=== PATIENT | female | born 1990 | race Caucasian/White ===

== ENCOUNTER 2018-08-23 14:41 | Emergency (ER) | payer SELFPAY ==
[2018-08-23 15:33] LABS: Urine Blood 2+ (NEG); Urine Glucose NEGATIVE (NEG); Urine Protein TRACE (NEG); Urine pH 7.5 (5.0-7.0)
[2018-08-23] MEDS ORDERED: KETOROLAC 30 MG/ML INJ ONE (15:33)
[2018-08-23] MEDS ORDERED: DIAZEPAM 10 MG/2 ML INJ SYRINGE ONE (15:40)
--- NOTE | 2018-08-23 15:43 | ER ---
Nurse's Notes [facility] Name: Elena Chinchilla Age: 28 yrs Sex: Female : 1990 Arrival Date: 08/23/2018 Time: 14:45 Bed 28 Private MD: Diagnosis: Torticollis Presentation: 08/23 15:27 Presenting complaint: Patient states: Headache and neck pain that worsens with bright sg light, pt reports nausea at this time. Transition of care: patient was not received from another setting of care. Onset of symptoms was August 23, 2018. Risk Assessment: Do you want to hurt yourself or someone else? Patient reports no desire to harm self or others. Initial Sepsis Screen: Does the patient meet any 2 criteria? No. Patient's initial sepsis screen is negative. Does the patient have a suspected source of infection? No. Patient's initial sepsis screen is negative. Care prior to arrival: None. 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 - Social history:: Smoking status: unknown. - Ebola Screening: : No symptoms or risks identified at this time. Screenin:42 Abuse screen: Denies threats or abuse. Denies injuries from another. Nutritional mg2 screening: No deficits noted. Tuberculosis screening: Fall Risk None identified. Assessment: 15:38 General: Appears in no apparent distress. comfortable, Behavior is calm, cooperative. mg2 Pain: Complains of pain in neck Pain does not radiate. Neuro: Level of Consciousness is awake, alert, obeys commands, Oriented to person, place, time, situation. Cardiovascular: No deficits noted. Respiratory: Airway is patent Respiratory effort is even, unlabored, Respiratory pattern is regular, symmetrical. GI: No deficits noted. : No deficits noted. EENT: No deficits noted. Derm: Skin is intact, is healthy with good turgor, Skin is pink, warm \T\ dry. normal. Musculoskeletal: Reports pain in neck since this morning. Pain is 8 out of 10 on a pain scale. Vital Signs: 15:06 BP 115 / 88; Pulse 80; Resp 16; Temp 98.5; Pulse Ox 97% ; Weight 88.45 kg; Height 5 ft. ms 4 in. (162.56 cm); Pain 10/10; 16:00 BP 116 / 78; Pulse 80; Resp 17; Pulse Ox 100% on R/A; Pain 2/10; mg2 15:06 Body Mass Index 33.47 (88.45 kg, 162.56 cm) ms ED Course: 14:45 Patient arrived in ED. as 14:59 Cecilio Blum PA is PHCP. cp 14:59 Cecilio Dawson MD is Attending Physician. cp 15:06 Yoin Clements RN is Primary Nurse. mg2 15:28 Triage completed. sg 15:42 No provider procedures requiring assistance completed. Patient did not have IV access mg2 during this emergency room visit. 15:42 Patient has correct armband on for positive identification. mg2 15:43 Arm band placed on. mg2 Administered Medications: 15:09 CANCELLED (Physician Discretion): TORadol 60 mg IM once cp 15:38 Drug: Diazepam 5 mg Route: IM; Site: left gluteus; mg2 15:59 Follow up: Response: No adverse reaction; Marked relief of symptoms mg2 15:38 Drug: TORadol 60 mg Route: IM; Site: right gluteus; mg2 15:59 Follow up: Response: No adverse reaction; Marked relief of symptoms mg2 Outcome: 15:43 Discharge ordered by MD. cp 16:00 Discharged to home ambulatory, with family. mg2 16:00 Condition: stable 16:00 Discharge instructions given to patient, family, Instructed on discharge instructions, follow up and referral plans. medication usage, Demonstrated understanding of instructions, follow-up care, medications, Prescriptions given X 2. 16:01 Patient left the ED. mg2 Signatures: Raheem Yoder RN RN sg Charlene Pritchett Maria ms Cecilio Blum PA PA cp Yoni Clements RN RN mg2
--- NOTE | 2018-08-23 15:43 | EDPHYS ---
Physician Documentation [facility] Name: Elena Chinchilla Age: 28 yrs Sex: Female : 1990 Arrival Date: 08/23/2018 Time: 14:45 Bed 28 Private MD: ED Physician Cecilio Dawson HPI: 08/23 15:15 This 28 yrs old Female presents to ER via Ambulatory with complaints of Neck cp Pain, >24Hrs Old. 15:15 The patient or guardian complains of decreased range of motion, pain, that is acute, cp tenderness. The symptoms are located on the left lateral neck. 15:15 Onset: The symptoms/episode began/occurred this morning. cp 15:15 Context: The neck injury/problem resulted from from unknown cause. Associated signs and cp symptoms: Pertinent positives: headache, nausea. The pain does not radiate. Modifying factors: the symptoms are aggravated by movement. Severity of symptoms: in the emergency department the symptoms are unchanged, despite home interventions. 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 - Social history:: Smoking status: unknown. - Ebola Screening: : No symptoms or risks identified at this time. ROS: 15:20 Constitutional: Negative for body aches, chills, fever, poor PO intake. cp 15:20 Eyes: Negative for injury, pain, redness, and discharge. cp 15:20 ENT: Negative for drainage from ear(s), ear pain, sore throat, difficulty swallowing, difficulty handling secretions. 15:20 Neck: Positive for pain with movement, pain at rest, stiffness, tenderness, Negative for injury or acute deformity, rash, bony tenderness. 15:20 Cardiovascular: Negative for chest pain, edema, palpitations. 15:20 Respiratory: Negative for cough, shortness of breath, wheezing. 15:20 Abdomen/GI: Positive for nausea, Negative for vomiting, diarrhea, constipation. 15:20 Back: Negative for injury or acute deformity, decreased range of motion, pain at rest, pain with movement. 15:20 : Negative for urinary symptoms. 15:20 Skin: Negative for cellulitis, rash. 15:20 Neuro: Positive for headache, Negative for altered mental status, numbness, tingling, weakness. 15:20 All other systems are negative. Exam: 15:25 Constitutional: The patient appears in no acute distress, alert, awake, cp non-diaphoretic, non-toxic, well developed, well nourished, uncomfortable. 15:25 Head/Face: Normocephalic, atraumatic. cp 15:25 Eyes: Periorbital structures: appear normal, Pupils: equal, round, and reactive to light and accomodation, Extraocular movements: intact throughout, Conjunctiva: normal, no exudate, no injection, Lids and lashes: appear normal, bilaterally. 15:25 ENT: External ear(s): are unremarkable, Ear canal(s): are normal, clear, TM's: bulging, is not appreciated, bilaterally, dullness, bilaterally, erythema, is not appreciated, bilaterally, Nose: is normal, Mouth: Lips: moist, Oral mucosa: pink and intact, moist, Posterior pharynx: is normal, airway is patent, no erythema, no exudate. 15:25 Neck: External neck: tenderness, that is moderate, left lateral neck, noted spasm, ROM/movement: pain, that is moderate, with rotation to the left, limited range of motion, that is moderate, when rotating to the left, Meningeal signs: are not present, nuchal rigidity, is not appreciated, Lymph nodes: no appreciated lymphadenopathy. 15:25 Chest/axilla: Inspection: normal, Palpation: is normal, no crepitus, no tenderness. 15:25 Cardiovascular: Rate: normal, Rhythm: regular, Pulses: Pulses are 2+ in right radial artery and left radial artery. 15:25 Respiratory: the patient does not display signs of respiratory distress, Respirations: normal, no use of accessory muscles, no retractions, no splinting, no tachypnea, Breath sounds: are clear throughout, no decreased breath sounds, no stridor, no wheezing. 15:25 Abdomen/GI: Exam negative for discomfort, distension, guarding, Inspection: abdomen appears normal. 15:25 Back: pain, is absent, ROM is normal. 15:25 Skin: cellulitis, is not appreciated, no rash present. 15:25 Neuro: Orientation: to person, place \T\ time. Mentation: is normal, Cerebellar function: is grossly normal, Motor: moves all fours, strength is normal, Sensation: is normal. Vital Signs: 15:06 BP 115 / 88; Pulse 80; Resp 16; Temp 98.5; Pulse Ox 97% ; Weight 88.45 kg; Height 5 ft. ms 4 in. (162.56 cm); Pain 10/10; 16:00 BP 116 / 78; Pulse 80; Resp 17; Pulse Ox 100% on R/A; Pain 2/10; mg2 15:06 Body Mass Index 33.47 (88.45 kg, 162.56 cm) ms MDM: 15:00 Patient medically screened. cp 15:30 Differential diagnosis: Cervical Disc Herniation cervical strain, Spondylolisthesis cp Spondylosis subluxation, torticollis. 15:42 Data reviewed: vital signs, nurses notes. cp 15:42 Counseling: I had a detailed discussion with the patient and/or guardian regarding: the cp historical points, exam findings, and any diagnostic results supporting the discharge/admit diagnosis, to return to the emergency department if symptoms worsen or persist or if there are any questions or concerns that arise at home. Response to treatment: the patient's symptoms have markedly improved after treatment, and as a result, I will discharge patient. 08/23 15:22 Order name: Urine Dipstick--Ancillary (enter results) ms 08/23 15:22 Order name: Urine --Ancillary (enter results) ms 08/23 15:34 Order name: Urine --Ancillary; Complete Time: 15:47 EDMS 08/23 15:34 Order name: Urine Dipstick-Ancillary; Complete Time: 15:47 EDMS 08/23 15:09 Order name: Urine Dipstick-Ancillary (obtain specimen); Complete Time: 15:22 cp 08/23 15:09 Order name: Urine Test (obtain specimen); Complete Time: 15:22 cp Administered Medications: 15:09 CANCELLED (Physician Discretion): TORadol 60 mg IM once cp 15:38 Drug: Diazepam 5 mg Route: IM; Site: left gluteus; mg2 15:59 Follow up: Response: No adverse reaction; Marked relief of symptoms mg2 15:38 Drug: TORadol 60 mg Route: IM; Site: right gluteus; mg2 15:59 Follow up: Response: No adverse reaction; Marked relief of symptoms mg2 Disposition: 08/23/18 15:43 Discharged to Home. Impression: Torticollis. - Condition is Stable. - Discharge Instructions: Acute Torticollis, Adult, Neck Exercises. - Prescriptions for Anaprox DS 550 mg Oral Tablet - take 1 tablet by ORAL route every 12 hours As needed; 20 tablet. Baclofen 10 mg Oral Tablet - take 1 tablet by ORAL route 3 times per day; 20 tablet. - Medication Reconciliation Form, Thank You Letter, Antibiotic Education, Prescription Opioid Use form. - Follow up: Private Physician; When: 2 - 3 days; Reason: Recheck today's complaints. - Problem is new. - Symptoms have improved. Addendum: 08/25/2018 07:25 Co-signature as Attending Physician, Cecilio Dawson MD I agree with the assessment and c rodriguez plan of care. Signatures: Dispatcher [employer] EDCecilio Danielle MD MD cha Page, Corey, PA PA Yoni Moyer RN RN mg2 Corrections: (The following items were deleted from the chart) 08/23 15:09 15:09 TORadol 60 mg IM once ordered. cp cp 16:01 15:43 08/23/2018 15:43 Discharged to Home. Impression: Torticollis. Condition is mg2 Stable. Forms are Medication Reconciliation Form, Thank You Letter, Antibiotic Education, Prescription Opioid Use. Follow up: Private Physician; When: 2 - 3 days; Reason: Recheck today's complaints. Problem is new. Symptoms have improved. cp
[2018-08-23 17:11] VITALS: TEMP 98.5
[2018-08-23 17:12] VITALS: BP 116/78; O2SAT 100
== END 2018-08-23 16:01 | disposition home or self-care (01) ==
LOC: ER 14:41
DX: M43.6 Torticollis (principal)
CPT/HCPCS: 81003; 81025; 96372; 99283; J3360